=== PATIENT | female | born 1985 | race Caucasian/White ===

== ENCOUNTER 2016-08-09 09:01 | Emergency (ER) | payer OTHER ==
[2016-08-09 09:09] VITALS: BP 101/61; PULSE 99; TEMP 98.3; BMI 29.2
[2016-08-09] MEDS ORDERED: ALBUTEROL SO4 0.083% IH SOL 2.5 MG/3 ML VIAL.NEB. NEB ONE ×2 (09:33→09:38)
--- NOTE | 2016-08-09 10:21 | PDOC ---
History of Present Illness - General Chief Complaint: Cold Symptoms Stated Complaint: FEVER, CHILLS, SORE THROAT Time Seen by Provider: 08/09/16 09:33 History Source: Patient Exam Limitations: No Limitations - History of Present Illness Initial Comments: 08/09/16 10:43 31 yr female with 4 days chills fever, ear pain cough body aches. no abd pain or vomiting. Past History - Past Medical History Allergies/Adverse Reactions: Allergies Allergy/AdvReac Type Severity Reaction Status Date / Time No Known Allergies Allergy Verified 08/09/16 09:09 Home Medications: Ambulatory Orders Vitamins (Sjr) - 1 tab PO DAILY 11/08/14 Asthma: No Cancer: No Cardiac Disorders: No Diabetes: No HTN: No Suicide Attempt (Hx): No Seizures: No Thyroid Disease: No - Reproductive History (#): 2 Para: 1 - Immunization History Immunization Up to Date: Yes - Psycho/Social/Smoking Cessation Hx Anxiety: No Suicidal Ideation: No Smoking History: Never smoked Have you smoked in the past 12 months: No Information on smoking cessation initiated: No Hx Alcohol Use: No Drug/Substance Use Hx: No Substance Use Type: None Hx Substance Use Treatment: No Respiratory Specific PMHX - Complaint Specific PMHX Angina: No Bronchitis: No Pneumonia: No Pulmonary Embolus: No TB (Tuberculosis): No Review of Systems - Review of Systems Able to Perform ROS?: Yes Is the patient limited [place] proficient: No Constitutional: Yes: Symptoms Reported, Chills, Fever Respiratory: Yes: Stridor *Physical Exam - Vital Signs Last Vital Signs Temp Pulse Resp BP Pulse Ox 98.3 F 99 H 18 101/61 99 08/09/16 09:06 08/09/16 09:06 08/09/16 09:06 08/09/16 09:06 08/09/16 09:06 - Physical Exam General Appearance: Yes: Nourished, Appropriately Dressed HEENT: positive: EOMI, REYNA, Normal ENT Inspection, TMs Normal, Pharynx Normal Neck: positive: Supple. negative: Tender Respiratory/Chest: positive: Lungs Clear, Normal Breath Sounds, Rhonchi ( scattered cleared with cough ) Cardiovascular: positive: Regular Rhythm, Regular Rate Gastrointestinal/Abdominal: positive: Normal Bowel Sounds, Soft Musculoskeletal: positive: Normal Inspection Extremity: positive: Normal Capillary Refill, Normal Inspection, Normal Range of Motion Integumentary: positive: Normal Color, Dry, Warm Neurologic: positive: Fully Oriented, Alert, Normal Mood/Affect, Normal Response , Motor Strength 10/07 ED Treatment Course - ADDITIONAL ORDERS Additional order review: 08/09/16 09:30 Influenza Types A,B Antigen (VEDA) - Final Nasopharyngeal Swab - Final - Medications Given in the ED: ED Medications Discontinued Medications Generic Name Dose Route Start Last Admin Trade Name Freq PRN Reason Stop Dose Admin Albuterol Sulfate 1 amp 08/09/16 09:33 08/09/16 09:44 Ventolin 0.083% Nebulizer Soln - NEB 08/09/16 09:34 1 amp ONCE ONE Administration Medical Decision Making - Medical Decision Making 08/09/16 10:44 cc: cough fever, chills body aches for 4 days will give albuterol for rhonchi check for flu *DC/Admit/Observation/Transfer Diagnosis at time of Disposition: Influenza A - Discharge Dispostion Disposition: HOME Condition at time of disposition: Good - Referrals Referrals: Jose Quintana MD [Primary Care Provider] - - Patient Instructions Additional Instructions: drink pleanty of fluids rest at home avoid stores, crowds, take Advil 600mg every 6hrs for pain or fever increase vitamin C and Zinc intake (over the counter supplements, orange juice )
== END 2016-08-09 10:21 | disposition home or self-care (01) ==
LOC: JERFT 09:01
PROC: 3E0F7GC Introduction of Other Therapeutic Substance into Respiratory Tract, Via Natural or Artificial Opening (ICD-10-PCS; principal; 2016-08-09)
DX: J09.X2 Influenza due to identified novel influenza A virus with other respiratory manifestations (principal)
CPT/HCPCS: 87804; 94640; 99281-25

== ENCOUNTER 2017-05-23 09:57 | Emergency (ER) | payer SELFPAY ==
[2017-05-23 10:14] VITALS: BP 118/72; PULSE 110; TEMP 98.4; BMI 25.6
--- NOTE | 2017-05-23 11:08 | PDOC ---
History of Present Illness - General History Source: Patient Exam Limitations: No Limitations - History of Present Illness Initial Comments: 05/23/17 11:30 The patient is a 31 year old female with a significant PMH of UTI who presents to the emergency department with multiple complaints including 2 days of nausea , vomiting, diarrhea and 1 day of fever. The patient reports being at work and having a sudden onset of diarrhea and reduced appetite with associated headache. She reports being unable to tolerate PO for the past 2 days as she just vomits it back up. She reports only drinking water for the past 2 days. She notes the last time she vomited or had diarrhea was last night. She reports taking her temperature yesterday which she noted to be T. max 101.4F with associated chills. The patient also notes that her urine has had a different distinct smell recently. Additionally the patient notes noticing right breast bruising under her areola yesterday. She notes that her 2 year old son still breastfeeds. The patient denies any sick contacts. The patient denies chest pain, shortness of breath, dizziness. Denies dysuria, frequency, urgency and hematuria. Denies constipation. Allergies: NKDA Past surgical history: None reported. Social history: No reported cigarette, alcohol, or drug use. PCP: Dr. Jose Quintana <David Sauceda - Last Filed: 05/23/17 11:32> <Enedina Hernandez - Last Filed: 05/23/17 13:50> - General Chief Complaint: Vomiting/Diarrhea Stated Complaint: ABD PAIN Time Seen by Provider: 05/23/17 10:42 Past History <David Sauceda - Last Filed: 05/23/17 11:32> - Past Medical History Asthma: No Cancer: No Cardiac Disorders: No COPD: No Diabetes: No HTN: No Seizures: No Thyroid Disease: No Other medical history: DENIES. - Reproductive History (#): 2 Para: 1 - Immunization History Immunization Up to Date: Yes - Suicide/Smoking/Psychosocial Hx Smoking History: Never smoked Have you smoked in the past 12 months: No Hx Alcohol Use: No Drug/Substance Use Hx: No Substance Use Type: None Hx Substance Use Treatment: No <Enedina Hernandez - Last Filed: 05/23/17 13:50> - Past Medical History Allergies/Adverse Reactions: Allergies Allergy/AdvReac Type Severity Reaction Status Date / Time No Known Allergies Allergy Verified 05/23/17 10:11 Home Medications: Ambulatory Orders Vitamins (Sjr) - 1 tab PO DAILY 11/08/14 Cephalexin Monohydrate [Keflex -] 500 mg PO Q8H #30 capsule 05/23/17 Ondansetron [Zofran -] 4 mg PO TID PRN #21 tablet 05/23/17 Review of Systems - Review of Systems Able to Perform ROS?: Yes Comments:: 05/23/17 11:30 GENERAL/CONSTITUTIONAL: (+) Fever (T. max 101.4). (+) Chills. No weakness. HEAD, EYES, EARS, NOSE AND THROAT: No change in vision. No ear pain or discharge. No sore throat. CARDIOVASCULAR: No chest pain or shortness of breath. RESPIRATORY: No cough, wheezing, or hemoptysis. GASTROINTESTINAL: (+) Nausea. (+) Vomiting. (+) Diarrhea. No constipation. GENITOURINARY: No dysuria, frequency, or change in urination. MUSCULOSKELETAL: No joint or muscle swelling or pain. No neck or back pain. SKIN: No rash NEUROLOGIC: (+) Headache. No vertigo, loss of consciousness, or change in strength/sensation. ENDOCRINE: No increased thirst. No abnormal weight change. HEMATOLOGIC/LYMPHATIC: No anemia, easy bleeding, or history of blood clots. ALLERGIC/IMMUNOLOGIC: No hives or skin allergy. <David Sauceda - Last Filed: 05/23/17 11:32> *Physical Exam - Vital Signs Last Vital Signs Temp Pulse Resp BP Pulse Ox 98.4 F 110 H 19 118/72 98 05/23/17 10:11 05/23/17 10:11 05/23/17 10:11 05/23/17 10:11 05/23/17 10:11 <David Sauceda - Last Filed: 05/23/17 11:32> - Vital Signs Last Vital Signs Temp Pulse Resp BP Pulse Ox 98.4 F 110 H 19 118/72 98 05/23/17 10:11 05/23/17 10:11 05/23/17 10:11 05/23/17 10:11 05/23/17 10:11 - Physical Exam Comments: GENERAL: Awake, alert, and fully oriented, in no acute distress HEAD: No signs of trauma EYES: PERRLA, EOMI, sclera anicteric, conjunctiva clear ENT: Auricles normal inspection, hearing grossly normal, nares patent, oropharynx clear without exudates. Dry mucosa NECK: Normal ROM, supple, no lymphadenopathy, JVD, or masses LUNGS: Breath sounds equal, clear to auscultation bilaterally. No wheezes, and no crackles HEART: Regular rate and rhythm, normal S1 and S2, no murmurs, rubs or gallops ABDOMEN: Soft, nontender, normoactive bowel sounds. No guarding, no rebound. No masses EXTREMITIES: Normal range of motion, no edema. No clubbing or cyanosis. No cords, erythema, or tenderness NEUROLOGICAL: Cranial nerves II through XII grossly intact. Normal speech, normal gait SKIN: Warm, Dry, normal turgor, no rashes or lesions noted. <Enedina Hernandez - Last Filed: 05/23/17 13:50> ED Treatment Course - LABORATORY CBC & Chemistry Diagram: 05/23/17 11:25 05/23/17 11:25 - ADDITIONAL ORDERS Additional order review: Laboratory Results 05/23/17 10:43 Urine HCG, Qual Negative <David Sauceda - Last Filed: 05/23/17 11:32> - LABORATORY CBC & Chemistry Diagram: 05/23/17 11:25 05/23/17 11:25 <Enedina Hernandez - Last Filed: 05/23/17 13:50> Medical Decision Making - Medical Decision Making 05/23/17 13:49 Pt tolerated PO challenge. I approached her to discuss discharge, IV catheter at bedside, as well as gown. Patient apparently eloped. RN will call to give DC information, as we did not discuss before she departed. <Enedina Hernandez - Last Filed: 05/23/17 13:50> *DC/Admit/Observation/Transfer - Attestations Scribe Attestion: 05/23/17 11:30 Documentation prepared by David Sauceda, acting as medical delivery technician for Enedina Hernandez MD. <David Sauceda - Last Filed: 05/23/17 11:32> - Discharge Dispostion Admit: No <Enedina Hernandez - Last Filed: 05/23/17 13:50> Diagnosis at time of Disposition: Pyelonephritis - Discharge Dispostion Disposition: HOME Condition at time of disposition: Stable - Prescriptions Prescriptions: Cephalexin Monohydrate [Keflex -] 500 mg PO Q8H #30 capsule Ondansetron [Zofran -] 4 mg PO TID PRN #21 tablet PRN Reason: Nausea And/Or Vomiting - Referrals Referrals: Jose Quintana MD [Primary Care Provider] - - Patient Instructions Printed Discharge Instructions: DI for Kidney Infection - Post Discharge Activity
[2017-05-23 11:21] LABS: URINE APPEARANCE SLCLOUDY; URINE BILIRUBIN NEGATIVE (NEGATIVE); URINE BLOOD 2+ (NEGATIVE); URINE COLOR YELLOW; URINE GLUCOSE (UA) NEGATIVE (NEGATIVE); URINE KETONE 2+ (NEGATIVE); URINE LEUK ESTERASE NEGATIVE (NEGATIVE); URINE NITRITE POSITIVE (NEGATIVE); URINE PROTEIN NEGATIVE (NEGATIVE); URINE UROBILINOGEN NEGATIVE mg/dL (0.2-1.0)
[2017-05-23] MEDS ORDERED: FAMOTIDINE 20 MG/50 ML IVPB 20 MG/50 ML MG IVPB ONE (11:30)
[2017-05-23] MEDS ORDERED: ONDANSETRON 4 MG/2 ML VIAL IVPUSH ONE (11:30)
[2017-05-23] MEDS ORDERED: SODIUM CHLORIDE 1,000 ML IV STA (11:30)
[2017-05-23 11:32] LABS: BASO % 0.3 % (0-2.0); EOS % 0.5 % (0-4.5); MCH 31.4 pg (25.7-33.7); MCHC 33.3 g/dl (32.0-36.0); MEAN CELL VOLUME 94.4 fl (80-96); MEAN PLT VOLUME 9.4 fl (7.5-11.1); NEUT % 74.5 % (42.8-82.8); PLATELET COUNT 237 K/MM3 (134-434); WHITE BLOOD COUNT 7.1 K/mm3 (4.0-10.0)
[2017-05-23 11:38] LABS: URINE BACTERIA MANY /hpf (NONE SEEN); URINE MUCUS RARE; URINE RBC <1 /hpf (0-3); URINE WBC 2 /hpf (3-5)
[2017-05-23] MEDS ORDERED: ONDANSETRON 4 MG/2 ML VIAL ONE (11:46)
[2017-05-23 12:00] LABS: ALBUMIN 3.7 g/dl (3.4-5.0); ANION GAP 9 (8-16); BILIRUBIN,TOTAL 0.8 mg/dL (0.2-1.0); CO2 30 mmol/L (21-32); CREATININE 0.7 mg/dL (0.55-1.02); GLUCOSE,RANDOM 87 mg/dL (74-106); SGOT/AST 17 U/L (15-37); SGPT/ALT 33 U/L (12-78); TOT PROT 7.3 g/dl (6.4-8.2)
[2017-05-23 12:01] LABS: ALK PHOS 103 U/L (45-117)
[2017-05-23] MEDS ORDERED: CEFTRIAXONE 1 GM in DEXTROSE 5%-WATER - 50 ML IVPB ONE (12:11)
[2017-05-23] MEDS ORDERED: CEFTRIAXONE 1 GM/50 ML BAG ONE (12:19)
[2017-05-23 14:51] LABS: URINE LEUK ESTERASE Negative (NEGATIVE)
== END 2017-05-23 13:47 | disposition left against medical advice (07) ==
LOC: JER 09:57
PROC: 3E03329 Introduction of Other Anti-infective into Peripheral Vein, Percutaneous Approach (ICD-10-PCS; principal; 2017-05-23)
PROC: 3E033GC Introduction of Other Therapeutic Substance into Peripheral Vein, Percutaneous Approach (ICD-10-PCS; 2017-05-23)
PROC: 3E0337Z Introduction of Electrolytic and Water Balance Substance into Peripheral Vein, Percutaneous Approach (ICD-10-PCS; 2017-05-23)
DX: N12 Tubulo-interstitial nephritis, not specified as acute or chronic (principal); Z87.440 Personal history of urinary (tract) infections
CPT/HCPCS: 36415; 80053; 81003; 81015; 83690; 84703; 85025; 99282-25

== ENCOUNTER 2017-10-05 09:13 | Emergency (ER) | payer SELFPAY ==
[2017-10-05 09:26] VITALS: BP 118/67; PULSE 97; TEMP 98.1; BMI 30.7
--- NOTE | 2017-10-05 09:59 | PDOC ---
History of Present Illness - General Chief Complaint: Cold Symptoms Stated Complaint: COLD SYMPTOMS Time Seen by Provider: 10/05/17 09:45 History Source: Patient Exam Limitations: No Limitations - History of Present Illness Initial Comments: 10/05/17 10:41 Patient is a 32-year-old female with no past medical history who presents to the emergency department with her daughter complaining of cough, earache and sore throat. Patient states she has been sick for 4 days. Cough is dry and nonproductive. Denies fevers, chills, shortness of breath, chest pain, nausea, vomiting, diarrhea, frequency or urgency and hematuria. Past History - Travel Traveled outside of the country in the last 30 days: No Close contact w/someone who was outside of country & ill: No - Past Medical History Allergies/Adverse Reactions: Allergies Allergy/AdvReac Type Severity Reaction Status Date / Time No Known Allergies Allergy Verified 10/05/17 09:23 Home Medications: Ambulatory Orders Amoxicillin - [Amoxicillin 500mg Capsule -] 500 mg PO BID #14 capsule 10/05/17 Asthma: No Cancer: No Cardiac Disorders: No COPD: No Diabetes: No HTN: No Seizures: No Thyroid Disease: No - Reproductive History (#): 2 Para: 1 - Immunization History Immunization Up to Date: Yes - Suicide/Smoking/Psychosocial Hx Smoking History: Never smoked Have you smoked in the past 12 months: No Information on smoking cessation initiated: No Hx Alcohol Use: No Drug/Substance Use Hx: No Substance Use Type: None Hx Substance Use Treatment: No Review of Systems - Review of Systems Able to Perform ROS?: Yes Comments:: 10/05/17 10:02 CONSTITUTIONAL: Absent: fever, chills, diaphoresis, generalized weakness, malaise, loss of appetite HEENT: Present: throat pain, ear pain Absent: rhinorrhea, nasal congestion, throat swelling, difficulty swallowing, mouth swelling, eye pain, visual Changes CARDIOVASCULAR: Absent: chest pain, loss of consciousness, palpitations, irregular heart rate, peripheral edema RESPIRATORY: Present: dry cough Absent: shortness of breath, dyspnea with exertion, orthopnea, wheezing, stridor, hemoptysis GASTROINTESTINAL: Absent: abdominal pain, abdominal distension, nausea, vomiting, diarrhea, constipation, melena, hematochezia GENITOURINARY: Absent: dysuria, frequency, urgency, hesitancy, hematuria, flank pain, genital pain NEUROLOGIC: Absent: headache, focal weakness or paresthesias, dizziness, unsteady gait, seizure, mental status changes, bladder or bowel incontinence PSYCHIATRIC: Absent: anxiety, depression, suicidal or homicidal ideation, hallucinations. Is the patient limited Mauritanian proficient: No *Physical Exam - Vital Signs Last Vital Signs Temp Pulse Resp BP Pulse Ox 98.1 F 97 H 18 118/67 100 10/05/17 09:23 10/05/17 09:23 10/05/17 09:23 10/05/17 09:23 10/05/17 09:23 - Physical Exam Comments: 10/05/17 10:02 GENERAL: Well developed, well nourished. Awake and alert. No acute distress. HEENT: Normocephalic, atraumatic. PERRLA, EOMI. No conjunctival pallor. Sclera are non- icteric. Moist mucous membranes. Oropharynx is with posterior erythema. R TM bulging and erythemetous. NECK: Supple. Full ROM. No JVD. Carotid pulses 2+ and symmetric, without bruits. No thyromegaly. No lymphadenopathy. CARDIOVASCULAR: Regular rate and rhythm. No murmurs, rubs, or gallops. Distal pulses are 2+ and symmetric. PULMONARY: No evidence of respiratory distress. Lungs clear to auscultation bilaterally. No wheezing, rales or rhonchi. SKIN: Warm and dry. Normal capillary refill. No rashes. No jaundice. NEUROLOGICAL: Alert, awake, appropriate. Cranial nerves 2-12 intact. No deficits to light touch and temperature in face, upper extremities and lower extremities. No motor deficits in the in face, upper extremities and lower extremities. Normoreflexic in the upper and lower extremities. Normal speech. Toes are down- going bilaterally. Gait is normal without ataxia. PSYCHIATRIC: Cooperative. Good eye contact. Appropriate mood and affect. Medical Decision Making - Medical Decision Making 10/05/17 10:44 Patient is a 32-year-old female no past medical history presents emergency Department with 4 days of sore throat, earache and cough. On exam patient is a clinical otitis media in the right ear. We'll treat with antibiotics at this time. Strep test deferred due to cross coverage of antibiotics. Patient's daughter test positive for strep at this time. Return precautions given. Patient understands all discharge instructions and all cautions were answered. *DC/Admit/Observation/Transfer Diagnosis at time of Disposition: Otitis media, right Qualifiers: Otitis media type: suppurative Chronicity: acute Recurrence: not specified as recurrent Spontaneous tympanic membrane rupture: without spontaneous rupture Qualified Code(s): H66.001 - Acute suppurative otitis media without spontaneous rupture of ear drum, right ear - Discharge Dispostion Disposition: HOME Condition at time of disposition: Stable Admit: No - Prescriptions Prescriptions: Amoxicillin - [Amoxicillin 500mg Capsule -] 500 mg PO BID #14 capsule - Referrals Referrals: Jose Quintana MD [Primary Care Provider] - - Patient Instructions Printed Discharge Instructions: Middle Ear Infection Additional Instructions: You have an upper respiratory infection and an ear infection. Please take the amoxicillin 500 mg twice a day for 10 days to help with the ear infection. [id number] cold medicine and cough drops may help. Follow the dosing instructions on the packaging. Drink plenty of fluids. Follow-up with her primary care doctor in 1 week. Return to the emergency department if you have worsening pain, increased fevers despite treatment or have any changes in your symptoms. - Post Discharge Activity Forms/Work/School Notes: Back to Work
== END 2017-10-05 10:57 | disposition home or self-care (01) ==
LOC: JERFT 09:13
DX: H66.001 Acute suppurative otitis media without spontaneous rupture of ear drum, right ear (principal)
CPT/HCPCS: 99281-25

== ENCOUNTER 2020-12-29 19:25 | Emergency (ER) | payer OTHER ==
[2020-12-29 19:56] VITALS: BP 113/75; PULSE 73; TEMP 98.1; BMI 28.1
[2020-12-29 22:38] LABS: HCG,QUALITATIVE URINE Positive
[2020-12-29 23:04] LABS: EPI CELLS 19 /uL (0-25.1); HYALINE CASTS 0 /uL (0-3.1); PH,URINE 5.5 (5.0-8.0); URINE APPEARANCE CLEAR; URINE BACTERIA 336 /uL (0-1359); URINE BILIRUBIN NEGATIVE (NEGATIVE); URINE COLOR YELLOW; URINE GLUCOSE (UA) NEGATIVE (NEGATIVE); URINE KETONE 1+ (NEGATIVE); URINE LEUK ESTERASE 1+ (NEGATIVE); URINE NITRITE NEGATIVE (NEGATIVE); URINE PROTEIN NEGATIVE (NEGATIVE); URINE RBC 1 /uL (0-23.9); URINE UROBILINOGEN 0.2 mg/dL (0.2-1.0); URINE WBC 40 /uL (0-25.8)
[2020-12-29 23:46] LABS: BASO % 0.5 % (0-2.0); HEMATOCRIT 36.2 % (32.4-45.2); HEMOGLOBIN 12.6 GM/dL (10.7-15.3); MCH 32.8 pg (25.7-33.7); MCHC 34.7 g/dl (32.0-36.0); MEAN CELL VOLUME 94.4 fl (80-96); MEAN PLT VOLUME 9.6 fl (7.5-11.1); MONO % 6.6 % (3.8-10.2); NEUT % 66.9 % (42.8-82.8); PLATELET COUNT 238 10^3/uL (134-434); RBC 3.84 M/mm3 (3.60-5.2); RDW 12.6 % (11.6-15.6); WHITE BLOOD COUNT 8.9 K/mm3 (4.0-10.0)
[2020-12-30 00:07] LABS: CALCIUM 9.7 mg/dL (8.5-10.1)
[2020-12-30 00:08] LABS: BLOOD UREA NITROGEN 15.7 mg/dL (7-18)
[2020-12-30 00:11] LABS: CREATININE 0.6 mg/dL (0.55-1.3)
== END 2020-12-30 00:33 | disposition home or self-care (01) ==
LOC: JER 19:25
DX: O26.851 Spotting complicating pregnancy, first trimester (principal); O23.41 Unspecified infection of urinary tract in pregnancy, first trimester; Z3A.10 10 weeks gestation of pregnancy
CPT/HCPCS: 36415; 76801-TC; 80048; 81003; 84702; 84703; 85025; 87086; 99284-25